=== PATIENT | female | born 1945 | race African-American/Black ===

== ENCOUNTER → 2017-03-19 | Outpatient (RCR) | payer OTHER ==
[~2017-03-19] MED LIST: AMARYL4 MG PO; ASPIRIN81 M1 PO; ATENOLOL100 MG PO; CELEBREX200 MG PO; COZAAR50 MG PO; LISINOPRIL-HCT1 EAC2 PO; MEVACOR40 MG PO; NORVASC5 MG PO; [UNRECOGNIZED DRUG - OTHER]
== END | disposition home or self-care (01) ==
LOC: PTY 03-03 09:47
DX: Z96.652 Presence of left artificial knee joint (principal)
CPT/HCPCS: 97110; 97140; 97162; G0283

== ENCOUNTER 2017-04-07 08:50 | Outpatient (RCR) | payer OTHER | END 2017-04-18 | disposition home or self-care (01) | LOC: PTY 08:50 | DX: Z96.652 Presence of left artificial knee joint (principal) | CPT/HCPCS: 97110; 97140; G0283 ==